=== PATIENT | male | born 1980 | race Caucasian/White ===

== ENCOUNTER 2018-03-30 12:10 | Emergency (ER) | payer OTHER ==
[2018-03-30 13:16] VITALS: RESP 16
--- NOTE | 2018-03-30 13:56 | ED ---
General Adult HPI - General Chief complaint: Extremity Injury, Upper Stated complaint: rt shoulder Time Seen by Provider: 03/30/18 13:24 Source: patient, RN notes reviewed Mode of arrival: ambulatory Limitations: no limitations - History of Present Illness Initial comments: 37-year-old male presents to the emergency department for a chief complaint of left shoulder pain 2 weeks. Patient states he was helping move a friend into a new apartment when the pain started. Patient states he thinks it is a muscle spasm. Patient has tried heating the area. Patient has not taken Motrin or Tylenol. Patient states it hurts to move his shoulder and feels better when he rested. 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 Patient denies any other injuries or falls. Patient denies any numbness or tingling in the left upper extremity. Patient denies any pain in the neck or back. He does state there is tenderness by the left shoulder blade which she thinks is where the muscle spasm is coming from. Patient has no other complaints at this time including shortness of breath, chest pain, abdominal pain, nausea or vomiting, headache, or visual changes. - Related Data Previous Rx's Medication Instructions Recorded Cyclobenzaprine [Flexeril] 10 mg PO TID #12 tab 03/30/18 Ibuprofen [Motrin] 600 mg PO Q6HR PRN #20 tab 03/30/18 Allergies Allergy/AdvReac Type Severity Reaction Status Date / Time Penicillins Allergy Unknown Verified 03/30/18 13:20 lactose AdvReac Nausea Verified 03/30/18 13:20 Review of Systems ROS Statement: Those systems with pertinent positive or pertinent negative responses have been documented in the HPI. ROS Other: All systems not noted in ROS Statement are negative. Past Medical History Past Medical History: No Reported History History of Any Multi-Drug Resistant Organisms: None Reported Past Surgical History: Cholecystectomy, Orthopedic Surgery Additional Past Surgical History / Comment(s): facial surgery Past Psychological History: No Psychological Hx Reported Smoking Status: Current every day smoker Past Alcohol Use History: Occasional Past Drug Use History: Marijuana General Exam Limitations: no limitations General appearance: alert, in no apparent distress Head exam: Present: atraumatic, normocephalic, normal inspection Eye exam: Present: normal appearance ENT exam: Present: normal exam, mucous membranes moist Neck exam: Present: normal inspection, full ROM (full flexion, extension, rotation). Absent: tenderness, meningismus, lymphadenopathy Respiratory exam: Present: normal lung sounds bilaterally. Absent: respiratory distress, wheezes, rales, rhonchi, stridor Cardiovascular Exam: Present: regular rate, normal rhythm, normal heart sounds. Absent: systolic murmur, diastolic murmur, rubs, gallop, clicks Extremities exam: Present: tenderness (Tenderness to the superior left shoulder. No tenderness over the acromioclavicular joint. Patient also has tenderness just medial to the left scapula), normal capillary refill (Refill less than 2 seconds and radial pulse 2+), other (Sensation intact in the left upper extremity. 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 Absent: full ROM (Patient has about 60 abduction and of the left shoulder and 90 flexion. 45 extension. Full range of motion in the left elbow and wrist.), joint swelling (No swelling , redness, or ecchymosis noted of the left shoulder.) Back exam: Present: normal inspection, full ROM, muscle spasm (Patient does have a palpable muscle spasm just medial to the left scapula most likely of the trapezius.). Absent: tenderness, vertebral tenderness (no tenderness of thoracic or lumbar spine.) Course Vital Signs 03/30/18 03/30/18 13:14 14:30 Temperature 98 F 97.8 F Pulse Rate 81 78 Respiratory 16 16 Rate Blood Pressure 144/88 138/70 O2 Sat by Pulse 98 98 Oximetry Medical Decision Making - Medical Decision Making 37-year-old male presents to the emergency department for a chief complaint of left shoulder pain 2 weeks. Patient was moving a friend into another apartment when the pain started. Patient thinks he has a muscle spasm which is causing the pain. Patient has tried heating the area but has not had Motrin or Tylenol. On exam, patient has limited range of motion of the left shoulder. Neurovascular intact. Tenderness to the superior left shoulder as well as medial to the left scapula. There is a palpable muscle spasm noted of the left trapezius likely causing the pain. No tenderness in the neck or spine. No acute fracture or dislocation evident on x-ray of the left shoulder patient likely is experiencing pain from a muscle spasm of the left trapezius. He will be given Motrin and Flexeril. He was educated not to operate machinery or drive while taking Flexeril. He will continue to apply heat to the area and was educated that a massage may be helpful. He will follow up with primary care in 1-2 days. He will return to the emergency department if he has any worsening symptoms. Disposition Clinical Impression: Trapezius muscle spasm Disposition: HOME SELF-CARE Condition: Good Instructions: Muscle Spasm (ED), Shoulder Pain (ED) Additional Instructions: Please take Motrin or Tylenol for pain. Please take Flexeril as muscle relaxer. Do not take Flexeril while driving or operating machinery. Apply heat to the area if that helps. If ice feels better you may do that. Follow up with primary care in 1-2 days. Return to the emergency department if you have any worsening symptoms. Prescriptions: Cyclobenzaprine [Flexeril] 10 mg PO TID #12 tab Ibuprofen [Motrin] 600 mg PO Q6HR PRN #20 tab PRN Reason: Pain Is patient prescribed a controlled substance at d/c from ED?: No Referrals: Lee Alicia MD [STAFF PHYSICIAN] - 1-2 days Time of Disposition: 14:23
--- NOTE | 2018-03-30 14:00 | XR ---
Left shoulder HISTORY: Pain, trauma 2 weeks prior 3 views of the left shoulder Bone mineralization, joint spaces and alignment are maintained. Left lung apex as visualized is sarabjit l. IMPRESSION: No fracture or dislocation evident.
[2018-03-30 14:32] VITALS: BP 138/70; PULSE 78; TEMP 97.8
== END 2018-03-30 14:30 | disposition home or self-care (01) ==
LOC: EC 12:10
DX: M62.838 Other muscle spasm (principal); F17.200 Nicotine dependence, unspecified, uncomplicated; Z98.890 Other specified postprocedural states; Z88.0 Allergy status to penicillin; Z91.011 Allergy to milk products; X58.XXXA Exposure to other specified factors, initial encounter; Y93.89 Activity, other specified
CPT/HCPCS: 99283